=== PATIENT | male | born 1995 | race American Indian/Alaskan Native ===

== ENCOUNTER 2017-04-29 07:10 | Emergency (ER) | payer MEDICAID, OTHER ==
[2017-04-29 07:13] VITALS: RESP 18; O2SAT 99
[2017-04-29 08:06] LABS: BASO # 0.1 K/uL (0.0-0.2); BASO % 0.4 % (0.0-2.0); EOS % 0.2 % (0.0-4.0); HEMATOCRIT 42.5 % (35.0-51.0); LYMPH # 1.7 K/uL (1.0-4.3); LYMPH % 8.1 % (20.0-40.0); MEAN CELL VOLUME 88.3 fL (80.0-94.0); MEAN CORPUSCULAR HEMOGLOBIN 31.4 pg (27.0-31.0); MEAN CORPUSCULAR HGB CONC 35.6 g/dL (33.0-37.0); MEAN PLATELET VOLUME 7.7 fL (7.2-11.7); MONO # 1.9 K/uL (0.0-0.8); MONO % 9.3 % (0.0-10.0); PLATELET COUNT 265 K/uL (130-400); RED CELL DISTRIBUTION WIDTH 13.1 % (11.5-14.5); WHITE BLOOD COUNT 20.4 K/uL (4.8-10.8)
[2017-04-29 08:22] LABS: BLOOD UREA NITROGEN 6 mg/dL (9-20); CALCIUM 8.9 mg/dl (8.6-10.4); CARBON DIOXIDE 24 mmol/L (22-30); CHLORIDE 100 mmol/L (98-107); GFR AFRICAN-AMERICAN > 60; GLUCOSE,RANDOM 110 mg/dL (75-110); POTASSIUM 4.2 mmol/L (3.6-5.2); SODIUM 132 mmol/L (132-148)
--- NOTE | 2017-04-29 08:34 | C.PDOC ---
History Of Present Illness 21 y/o male with toothache in right mandible for last 1-2 weeks, s/p trip and fall in bathroom last night, where he hit right side face against something. pt sts he was bleeding from his mouth, did not have any swelling to face then. pt woke with throbbing pain, unable to open mouth widely and swelling to right side of face. denies fever and chills, did not havr any loc last night, no neck pain. Time Seen by Provider: 04/29/17 07:19 Chief Complaint (Nursing): Dental Pain History Per: Patient History/Exam Limitations: no limitations Onset/Duration Of Symptoms: Days Current Symptoms Are (Timing): Worse Severity: Moderate Quality: Positive for: Tightness Past Medical History Reviewed: Historical Data, Nursing Documentation, Vital Signs Vital Signs: Last Vital Signs Temp 99.8 F H 04/29/17 11:48 Pulse 78 04/29/17 11:48 Resp 18 04/29/17 11:48 BP 116/72 04/29/17 11:48 Pulse Ox 99 04/29/17 11:48 - Medical History PMH: Asthma - [facility] Procedures INJECT/INFUSE NEC (11/30/13) Family History: States: Unknown Family Hx - Social History Hx Tobacco Use: No Hx Alcohol Use: No Hx Substance Use: No - Immunization History Hx Tetanus Toxoid Vaccination: No Hx Influenza Vaccination: No Hx Pneumococcal Vaccination: No Review Of Systems Constitutional: Negative for: Fever, Chills ENT: Positive for: Mouth Pain, Mouth Swelling. Negative for: Ear Pain, Throat Pain Skin: Negative for: Rash Neurological: Negative for: Weakness, Numbness Physical Exam - Physical Exam Appears: Non-toxic, In Acute Distress (uncomfortable due to pain) Skin: Normal Color, Warm, Dry Head: Normacephalic, Swelling (marked swelling and tenderness to right side face , unable to open mouth more than 1-2 cm. ) Oral Mucosa: Other Lips: Normal Appearing Neck: No Midline Cervical Tenderness, Supple Neurological/Psych: Oriented x3, Normal Speech, Normal Cognition ED Course And Treatment - Laboratory Results Result Diagrams: 04/29/17 08:02 04/29/17 08:02 O2 Sat by Pulse Oximetry: 99 Medical Decision Making Medical Decision Making: pt with right lower dental pain for 1-2 weeks, with trip and fall last night, hit right side face, now with swelling and tenderness; eval for abscess vs mandibular fx. pt has hx left mandibular fx 2 yrs ago. 1221 pm pt to be transferred to [facility] for FS eval; Dr Silvestre in ED/Dr Wood from [place] as accepting physicians Disposition - Disposition Disposition: Trans to Other Acute Care Hosp Disposition Time: 12:23 Condition: STABLE Forms: [employer] (Khmer) - Clinical Impression Clinical Impression: Periapical abscess, Facial cellulitis
[2017-04-29 08:38] LABS: BASOPHIL 2 % (0-2); NEUTROPHIL 78 % (50-75); TOTAL CELLS COUNTED 100
[2017-04-29 08:39] LABS: LARGE PLATELETS PRESENT
[2017-04-29] MEDS ORDERED: Iodixanol 320 MG/ML 100 ML BOTTLE IV ONE (08:44)
[2017-04-29] MEDS ORDERED: Clindamycin 600mg/50ml NS 600 MG/50 ML BAG IVPB ONE (08:54)
--- NOTE | 2017-04-29 10:04 | CT ---
PROCEDURE: CT MAXILLOFACIAL BONES WITH CONTRAST HISTORY: Right mandibular swelling COMPARISON: None. TECHNIQUE: Contiguous axial CT images of the maxillofacial bones were obtained following administration of IV contrast. Coronal and sagittal reformats were generated. Intravenous contrast Dose: 100 mL Visipaque Radiation dose: Total exam DLP = 797.33 mGy-cm. This CT exam was performed using one or more of the following dose reduction techniques: Automated exposure control, adjustment of the mA and/or kV according to patient size, and/or use of iterative reconstruction technique. FINDINGS: There is asymmetric severe right lower facial soft tissue swelling overlying the mandible with abnormal soft-tissue infiltrating the subcutaneous fat. There is also abnormal density in the massetor muscle. There is small amount of fluid overlying the right masseter. There is no abscess or drainable fluid collection. There is a large periapical abscess involving right maxillary 2nd premolar and 1st molar teeth. There is also pedicle apical abscess involving the left maxillary 2nd premolar. NASAL BONES: Intact. ORBITS: Symmetric and normal in appearance. The globes are normal. No evidence of subperiosteal abscess or orbital cellulitis. PARANASAL SINUSES/ MASTOIDS: The paranasal sinuses and mastoid air cells are clear. There is cerumen in the right external auditory canal. MAXILLA: Unremarkable. MANDIBLE/ TEMPOROMANDIBULAR JOINTS: Unremarkable. SKULL BASE: Unremarkable. TEMPORAL BONES: Middle ears and mastoid grossly unremarkable. OTHER FINDINGS: There is reactive enlargement of the right submandibular lymph nodes. IMPRESSION: 1. Findings are consistent with severe right lower facial cellulitis. No drainable abscess or fluid collection. Reactive right submandibular lymphadenopathy. 2. Large periapical abscess involving the right maxillary 2nd premolar and 1st molar teeth and left maxillary 2nd premolar tooth.
[2017-04-29 11:49] VITALS: BP 116/72; PULSE 78; TEMP 99.8
== END 2017-04-29 12:45 | disposition short-term general hospital (02) ==
LOC: C.ER 07:10
DX: K04.7 Periapical abscess without sinus (principal); L03.211 Cellulitis of face
CPT/HCPCS: 70481; 80048; 85025; 96365; 96375; 99283; J1885; Q9967

== ENCOUNTER 2017-05-03 13:55 | Emergency (ER) | payer OTHER ==
[2017-05-03 14:12] VITALS: BP 122/85; PULSE 90; RESP 20; TEMP 98.5; O2SAT 98
--- NOTE | 2017-05-03 14:32 | C.PDOC ---
History Of Present Illness 21 y/o male presenting with gum pain and for removal of drain. Patient was seen in this ED several days ago, dx with facial cellulitis and dental abscesses and was transferred to [facility] for an OMFS consult. He was supposed to follow up yesterday there to have drain evaluated, but sts he had no transport to get there and was hoping that we could transport him there today. Pt sts he is taking Ibuprofen and amoxicillin. Time Seen by Provider: 05/03/17 14:17 Chief Complaint (Nursing): Dental Pain History Per: Patient History/Exam Limitations: no limitations Onset/Duration Of Symptoms: Days Current Symptoms Are (Timing): Still Present Recent travel outside of the [place]: No Past Medical History Reviewed: Historical Data, Nursing Documentation, Vital Signs Vital Signs: Last Vital Signs Temp 98.5 F 05/03/17 14:05 Pulse 90 05/03/17 14:05 Resp 20 05/03/17 14:05 BP 122/85 05/03/17 14:05 Pulse Ox 98 05/03/17 14:37 - Medical History PMH: Asthma Surgical History: No Surg Hx - [facility] Procedures INJECT/INFUSE NEC (11/30/13) Family History: States: Unknown Family Hx - Social History Hx Tobacco Use: No Hx Alcohol Use: No Hx Substance Use: No - Immunization History Hx Tetanus Toxoid Vaccination: No Hx Influenza Vaccination: No Hx Pneumococcal Vaccination: No Review Of Systems Constitutional: Negative for: Fever, Chills ENT: Positive for: Mouth Swelling (right side face), Other (Dental pain) Skin: Negative for: Rash Neurological: Negative for: Weakness, Numbness Physical Exam - Physical Exam Appears: Non-toxic, No Acute Distress Skin: Normal Color, Warm, Dry Head: Atraumatic, Normacephalic Tongue: Normal Appearing Teeth: Other (right mandible: swelling to face (decreased from Thursday); few missing teeth in right mandible, rubber drain sutured into place into gums on buccal surface mandible. swelling to gums., ) Gingiva: Swelling Throat: No Erythema, No Exudate Neck: Normal ROM, Supple ED Course And Treatment O2 Sat by Pulse Oximetry: 98 (RA) Pulse Ox Interpretation: Normal Medical Decision Making Medical Decision Makin Initial Impression 21 y/o male presenting for drain removal Initial Plan: * Reevaluation * 236 pm pt needs to f/u with [facility];, continue antibiotics and analgesics. Disposition Counseled Patient/Family Regarding: Need For Followup - Disposition Disposition: HOME/ ROUTINE Disposition Time: 14:36 Condition: STABLE Additional Instructions: Please follow up at [facility] or with a dentist as soon as possible for evaluation of drain. Finish all antibiotics. Forms: [facility] (Algerian), General Discharge Instructions - Clinical Impression Clinical Impression: Dental abscess
== END 2017-05-03 15:09 | disposition home or self-care (01) ==
LOC: C.ER 13:55
DX: K04.7 Periapical abscess without sinus (principal)